=== PATIENT | male | born 1995 | race Two or more races ===

== ENCOUNTER 2018-12-26 18:27 | Emergency (ER) | payer SELFPAY ==
[~2018-12-26] VITALS: Ht 182.9 cm; Wt 90.7 kg
[2018-12-26] MEDS ORDERED: IV NORMAL SALINE 1000ML BAG 1,000 ML IV ONE (19:00)
[2018-12-26] MEDS ORDERED: ONDANSETRON PF 4 MG/2 ML VIAL. IV ONE (19:00)
[2018-12-26] MEDS ORDERED: PANTOPRAZOLE IV PUSH 40 MG VIAL. IVP ONE (19:00)
[2018-12-26 19:01] LABS: BASO # 0.1 x10^3/uL (0.0-0.2); BASO % 1 % (0-3); EOS # 0.2 x10^3/uL (0.0-0.7); EOS % 3 % (0-3); HEMATOCRIT 42.8 % (39.0-53.0); HEMOGLOBIN 15.3 g/dL (13.0-17.5); LYMPH # 2.7 x10^3/uL (1.0-4.8); LYMPH % 39 % (24-48); MEAN CORPUSCULAR HEMOGLOBIN 30 pg (25-35); MEAN CORPUSCULAR HGB CONC 36 g/dL (31-37); MEAN CORPUSCULAR VOLUME 84 fL (79-100); MONO # 0.5 x10^3/uL (0.0-1.1); MONO % 7 % (0-9); NEUT # 3.6 x10^3uL (1.8-7.7); NEUT % 51 % (31-73); PLATELET COUNT 261 x10^3/uL (140-400); RED CELL DISTRIBUTION WIDTH 13.2 % (11.5-14.5)
[2018-12-26 19:06] LABS: PROTHROMBIN TIME PATIENT 12.5 SEC (11.7-14.0)
[2018-12-26 19:09] LABS: CALCIUM 9.4 mg/dL (8.5-10.1); CREATININE 1.1 mg/dL (0.7-1.3); GFR 84.5; POTASSIUM 3.6 mmol/L (3.5-5.1)
[2018-12-26 19:15] LABS: ALBUMIN 3.9 g/dL (3.4-5.0); ALBUMIN/GLOBULIN RATIO 1.1 (1.0-1.7); TOTAL BILIRUBIN 0.4 mg/dL (0.2-1.0); TOTAL PROTEIN 7.4 g/dL (6.4-8.2)
[2018-12-26 19:30] VITALS: BP 106/61
[2018-12-26] MEDS ORDERED: RANI300T3 PO (19:30)
[2018-12-26] MEDS ORDERED: ONDA4TAB12 PO (19:30)
--- NOTE | 2018-12-26 19:30 | PHYS DOC ---
Past Medical History Past Medical History: No Pertinent History Past Surgical History: Other Additional Past Surgical Histo: LUE Alcohol Use: None Drug Use: None Adult General Chief Complaint Chief Complaint: NAUSEA/VOMITING/DIARRHA HPI HPI 23-year-old male presents with nausea and vomiting. He states he's had an episode of vomiting with maroon-colored blood. He states it was quite a bit. He denies taking any NSAIDs. He has not had any significant abdominal/epigastric discomfort. He states the symptoms just started today. He denies any orthostatic type symptoms.[] Review of Systems Review of Systems Constitutional: Denies fever or chills [] Eyes: Denies change in visual acuity, redness, or eye pain [] HENT: Denies nasal congestion or sore throat [] Respiratory: Denies cough or shortness of breath [] Cardiovascular: No additional information not addressed in HPI [] GI: Per history of present illness[] : Denies dysuria or hematuria [] Musculoskeletal: Denies back pain or joint pain [] Integument: Denies rash or skin lesions [] Neurologic: Denies headache, focal weakness or sensory changes [] Endocrine: Denies polyuria or polydipsia [] All other systems were reviewed and found to be within normal limits, except as documented in this note. Current Medications Current Medications Current Medications Medications (Trade) Dose Ordered Sig/Varinder Start Time Stop Time Status Last Admin Dose Admin Ondansetron HCl (Zofran) 4 mg 1X ONCE 12/26/18 19:00 12/26/18 19:01 DC 12/26/18 18:58 4 MG Pantoprazole Sodium (PROTONIX VIAL for IV PUSH) 80 mg 1X ONCE 12/26/18 19:00 12/26/18 19:01 DC 12/26/18 18:58 80 MG Sodium Chloride 1,000 ml @ 1,000 mls/hr 1X ONCE 12/26/18 19:00 12/26/18 19:59 12/26/18 18:57 1,000 MLS/HR Allergies Allergies Allergies Coded Allergies Type Severity Reaction Last Updated Verified No Known Drug Allergies 12/26/18 No Physical Exam Physical Exam Constitutional: Well developed, well nourished, no acute distress, non-toxic appearance. [] HENT: Normocephalic, atraumatic, bilateral external ears normal, oropharynx moist, no oral exudates, nose normal. [] Eyes: PERRLA, EOMI, conjunctiva normal, no discharge. [] Neck: Normal range of motion, no tenderness, supple, no stridor. [] Cardiovascular:Heart rate regular rhythm, no murmur [] Lungs & Thorax: Bilateral breath sounds clear to auscultation [] Abdomen: Bowel sounds normal, soft, no tenderness, no masses, no pulsatile masses. [] Skin: Warm, dry, no erythema, no rash. [] Back: No tenderness, no CVA tenderness. [] Extremities: No tenderness, no cyanosis, no clubbing, ROM intact, no edema. [] Neurologic: Alert and oriented X 3, normal motor function, normal sensory function, no focal deficits noted. [] Psychologic: Anxious. [] Current Patient Data Vital Signs Vital Signs Date Time Temp Pulse Resp B/P (MAP) Pulse Ox O2 Delivery O2 Flow Rate FiO2 12/26/18 18:49 97.9 76 18 125/77 (93) 98 Room Air 97.9 Lab Values Laboratory Tests Test 12/26/18 18:48 White Blood Count 7.0 x10^3/uL (4.0-11.0) Red Blood Count 5.10 x10^6/uL (4.30-5.70) Hemoglobin 15.3 g/dL (13.0-17.5) Hematocrit 42.8 % (39.0-53.0) Mean Corpuscular Volume 84 fL (79-100) Mean Corpuscular Hemoglobin 30 pg (25-35) Mean Corpuscular Hemoglobin Concent 36 g/dL (31-37) Red Cell Distribution Width 13.2 % (11.5-14.5) Platelet Count 261 x10^3/uL (140-400) Neutrophils (%) (Auto) 51 % (31-73) Lymphocytes (%) (Auto) 39 % (24-48) Monocytes (%) (Auto) 7 % (0-9) Eosinophils (%) (Auto) 3 % (0-3) Basophils (%) (Auto) 1 % (0-3) Neutrophils # (Auto) 3.6 x10^3uL (1.8-7.7) Lymphocytes # (Auto) 2.7 x10^3/uL (1.0-4.8) Monocytes # (Auto) 0.5 x10^3/uL (0.0-1.1) Eosinophils # (Auto) 0.2 x10^3/uL (0.0-0.7) Basophils # (Auto) 0.1 x10^3/uL (0.0-0.2) Prothrombin Time 12.5 SEC (11.7-14.0) Prothrombin Time INR 1.0 (0.8-1.1) Sodium Level 141 mmol/L (136-145) Potassium Level 3.6 mmol/L (3.5-5.1) Chloride Level 104 mmol/L (98-107) Carbon Dioxide Level 24 mmol/L (21-32) Anion Gap 13 (6-14) Blood Urea Nitrogen 17 mg/dL (8-26) Creatinine 1.1 mg/dL (0.7-1.3) Estimated GFR (Cockcroft-Gault) 84.5 BUN/Creatinine Ratio 15 (6-20) Glucose Level 115 mg/dL (70-99) H Calcium Level 9.4 mg/dL (8.5-10.1) Total Bilirubin 0.4 mg/dL (0.2-1.0) Aspartate Amino Transferase (AST) 22 U/L (15-37) Alanine Aminotransferase (ALT) 29 U/L (16-63) Alkaline Phosphatase 62 U/L (46-116) Total Protein 7.4 g/dL (6.4-8.2) Albumin 3.9 g/dL (3.4-5.0) Albumin/Globulin Ratio 1.1 (1.0-1.7) Lipase 84 U/L (73-393) Laboratory Tests 12/26/18 18:48 Laboratory Tests 12/26/18 18:48 EKG EKG [] Radiology/Procedures Radiology/Procedures [] Course & Med Decision Making Course & Med Decision Making Pertinent Labs and Imaging studies reviewed. (See chart for details) [ED course: Evaluation was a 23-year-old male who had an episode of vomiting with some blood today. Laboratory studies were checked his H&H was high normal. He was given IV fluids and Protonix during his stay in the department. He had no further episodes of vomiting. I'll start him on an H2 shital as an outpatient and give him Dr. Evans hayes to follow with. I've also discussed with him the importance of returning to the emergency department should he have any further hematemesis.] Be Disclaimer Dragon Disclaimer This electronic medical record was generated, in whole or in part, using a voice recognition dictation system. Departure Departure Impression: Primary Impression: Hematemesis Additional Impression: Gastritis Disposition: 01 HOME, SELF-CARE Condition: STABLE Referrals: MEGHANA KENNEY MD Call Dr. Kenney's office on Saturday to schedule a follow-up appointment. Patient Instructions: Gastritis, Adult Additional Instructions: If you have any further episodes of blood in your vomit please return to the emergency department. It is very important for you to take the medication that she were prescribed as directed. Scripts Ranitidine Hcl (ZANTAC) 300 Mg Tablet 1 TAB PO QHS for reflux, #90 TAB 3 Refills Prov: KHUSHI PARKER DO 12/26/18 Ondansetron (ONDANSETRON ODT) 4 Mg Tab.rapdis 1 TAB PO PRN Q6-8HRS for VOMITING, #20 TAB Prov: KHUSHI PARKER DO 12/26/18 Problem Qualifiers Primary Impression: Hematemesis Nausea presence: with nausea Qualified Codes: K92.0 - Hematemesis Additional Impression: Gastritis Gastritis type: unspecified gastritis Chronicity: unspecified Gastritis bleeding: with bleeding Qualified Codes: K29.71 - Gastritis, unspecified, with bleeding KHUSHI PARKER DO Dec 26, 2018 19:30
== END 2018-12-26 19:45 | disposition home or self-care (01) ==
LOC: ER 18:27
DX: K29.71 Gastritis, unspecified, with bleeding (principal); K92.0 Hematemesis
CPT/HCPCS: 36415; 80053; 83690; 85025; 85610; 96361; 96374; 96375; 99284; C9113; J2405; J7030